=== PATIENT | male | born 1995 ===

== ENCOUNTER 2016-09-23 11:54 | Emergency (ER) | payer OTHER, BC ==
[2016-09-23 12:33] VITALS: PULSE 85; RESP 18; TEMP 98; O2SAT 99
[2016-09-23] MEDS ORDERED: TDAP Vaccine 0.5 mL Syr IM ONE (12:43)
[2016-09-23 13:16] VITALS: BP 140/61
--- NOTE | 2016-09-23 14:28 | ED PDOC ---
HPI: Skin/Bite Injury Time Seen by Provider: 09/23/16 12:11 Chief Complaint (Nursing): Abnormal Skin Integrity Chief Complaint (Provider): Arm laceration History Per: Patient History/Exam Limitations: no limitations Current Symptoms Are (Timing): Still Present Location Of Injury: Right: Arm (Right upper arm) Additional Complaint(s): Thomas Ordonez a 20 year old male presents to the ED with a upper right arm laceration. He says that while he was at work he cut his arm with a wire. He denies numbness and tingling. Tetanus vaccination is not up to date. Past Medical History Reviewed: Historical Data, Nursing Documentation, Vital Signs Vital Signs: Last Vital Signs Temp 98 F 09/23/16 12:15 Pulse 85 09/23/16 12:15 Resp 18 09/23/16 12:15 BP 140/61 09/23/16 13:15 Pulse Ox 99 09/23/16 14:55 - Medical History PMH: No Chronic Diseases - Family History Family History: States: Unknown Family Hx - Social History Current smoker - smoking cessation education provided: No Alcohol: Social - Immunization History Hx Tetanus Toxoid Vaccination: No - Home Medications Home Medications: Ambulatory Orders Medication Instructions Recorded No Known Home Med 09/23/16 - Allergies Allergies/Adverse Reactions: Allergies Allergy/AdvReac Type Severity Reaction Status Date / Time No Known Allergies Allergy Verified 09/23/16 12:18 Review of Systems Skin: Positive for: Other (laceration on right upper arm) Neurological: Negative for: Numbness (no tingling) Physical Exam - Reviewed Nursing Documentation Reviewed: Yes Vital Signs Reviewed: Yes - Physical Exam Appears: Positive for: Non-toxic, No Acute Distress Skin: Positive for: Normal Color, Warm, Dry Extremity: Positive for: Normal ROM (FROM of RUE), Other ( 1cm very superficial linear laceration on the right mid dorsal forearm no active bleeding) Neurologic/Psych: Positive for: Alert, Oriented - ECG O2 Sat by Pulse Oximetry: 99 (RA) Pulse Ox Interpretation: Normal Medical Decision Making Medical Decision Makin:11 Initial Impression: Arm Laceration Initial Plan: * TDAP vaccine 0.5mL IM * wound repair Wound repair performed by this provider, see procedure note for additional details. The patient is feeling better, is medically stable, and requires no further treatment in the ED at this time. Patient will be discharged home. Counseling was provided and all questions were answered regarding diagnosis and need for follow up with his PMD. There is agreement to discharge plan. Return if symptoms persist or worsen. Scribe Attestation: Documented by Minnie Yoo training under Lula Kidd, acting as a scribe for Domingo Kohler PA-C. Provider Scribe Attestation: All medical record entries made by the Scribe were at my direction and personally dictated by me. I have reviewed the chart and agree that the record accurately reflects my personal performance of the history, physical exam, medical decision making, and the department course for this patient. I have also personally directed, reviewed, and agree with the discharge instructions and disposition. Disposition - Clinical Impression Clinical Impression: Arm laceration - Patient ED Disposition Is Patient to be Admitted: No Counseled Patient/Family Regarding: Diagnosis, Need For Followup - Disposition Disposition: Routine/Home Disposition Time: 13:15 Condition: STABLE Instructions: Acute Wound Care (ED), Steristrips (ED) Print Language: FRENCH Procedures - Time-Out Type of Procedure: Wound repair Site of Procedure: Right Upper Arm Correct Patient (with visual ID + MR# on ID Band): Yes Correct Procedure: Yes Correct Site Marked: Yes PA/Tech: Domingo Kohler PA-C - Laceration/Wound Repair Right upper arm Wound Length (cm): 1 Wound's Depth, Shape: superficial, linear Wound Explored: clean Irrigated w/ Saline (ccs): 200 Wound Repaired With: Steri-strips (2) Layer Closure?: No Wound Complexity: Simple Sterile Dressing Applied?: No (bandaid) Splint Applied?: No Sling Applied?: No Progress: Good Approximation. Patient tolerated procedure well with no immediate complications.
== END 2016-09-23 13:15 | disposition home or self-care (01) ==
LOC: H.ER 11:54
DX: S51.811A Laceration without foreign body of right forearm, initial encounter (principal); W22.8XXA Striking against or struck by other objects, initial encounter; Y99.0 Civilian activity done for income or pay